=== PATIENT | female | born 1940 | race Caucasian/White ===

== ENCOUNTER 2018-02-21 15:23 | Inpatient (IN) | payer MEDICARE ==
[2018-02-21] MEDS ORDERED: NS 0.9% 1000 ML* 1,000 ML IV SCH ×2 (17:45→21:45)
[2018-02-21 18:15] LABS: ABS Basophils 0.1 10^3/ul (0-0.2); ABS Eosinophils 0.1 10^3/ul (0-0.6); ABS Lymphocytes 1.1 10^3/ul (1.0-4.8); ABS Monocytes 0.8 10^3/ul (0-0.8); ABS Neutrophils 7.2 10^3/ul (1.5-7.7); ABS Nucleated RBC 0 10^3/ul; Eosinophil % 0.6 % (0-6); Hematocrit 36 % (35-47); Hemoglobin 11.8 g/dl (12.0-16.0); Mean Corpuscular HGB Conc 33 g/dl (31-36); Mean Corpuscular Hemoglobin 31 pg (27-31); Mean Corpuscular Volume 94 fL (80-97); Mean Platelet Volume 7.5 um3 (7.4-10.4); Nucleated Red Blood Cells % 0; Platelet Count 295 10^3/ul (150-450); Red Blood Count 3.77 10^6/ul (4.0-5.4); Red Cell Distribution Width 15 % (10.5-15); White Blood Count 9.2 10^3/ul (3.5-10.8)
[2018-02-21 18:30] LABS: INR 0.98 (0.77-1.02)
[2018-02-21] MEDS ORDERED: Morphine INJ* 10 MG/ML 1 ML CARPUJECT IV ONE (18:31)
[2018-02-21] MEDS ORDERED: Ondansetron INJ* 2 MG/ML VIAL IV ONE (18:31)
[2018-02-21] MEDS ORDERED: Morphine VIAL* 4 MG/ML VIAL (1 ml vial) IV ONE ×2 (18:33→18:43)
[2018-02-21 18:34] LABS: EGFR Non-African American 88.6 (>60)
[2018-02-21 19:02] LABS: Urine Appearance Clear; Urine Blood 2+ (Negative); Urine Color Straw; Urine Ketones Negative (Negative); Urine Protein Negative (Negative); Urine Urobilinogen Negative (Negative)
[2018-02-21] MEDS ORDERED: Iohexol 300* (CONTRAST) 10 ML SDV IV ONE (19:48)
--- NOTE | 2018-02-21 20:43 | RAD ---
Indication: Abdominal pain, colitis. Contrast: Administered 91.0 ml of OMNIPAQUE 300 mg/ml. CT of the abdomen and pelvis was performed after oral and IV contrast administration. Lung bases demonstrate no pleural fluid, nodules or masses. Heart is of normal size without evidence of pericardial effusion. Liver is normal in size. No focal lesions or intrahepatic ductal dilatation is noted. Typical area of focal fatty infiltration in the anterior medial left lobe. The gallbladder demonstrates tiny calcified gallstone. No pericholecystic fluid or wall thickening is noted. The spleen is normal in size. There may be a small splenic artery aneurysm at the splenic hilum measuring up to 8 mm. This is wall calcified. The pancreas demonstrates no mass or pancreatic duct dilatation. No adrenal lesions are noted. The kidneys demonstrate no hydronephrosis. No retroperitoneal lymphadenopathy is noted. CT of the pelvis demonstrates wall thickening of the entire colon consistent with colitis. Minimal pericolonic infiltration of fat is noted. No dilated loops of bowel are noted. There is right hip replacement noted. IMPRESSION: Diffuse wall thickening of the colon consistent with colitis. There is likely small gallstone noted. Typical focal fatty infiltration. 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
--- NOTE | 2018-02-21 21:24 | ED ---
Carlos Mayes Angela, scribed for Nicholas Alonso on 02/21/18 at 1727 . GI/ HPI - HPI Summary HPI Summary: This pt is a 77 y/o female presenting to [facility] for diarrhea x6 days. Pt reports she has been bloated, gassy, and has had abdominal cramping for the past 6 days. She states she wakes up every couple of hours secondary to pain. Pt notes today she has had 8-10 episodes of diarrhea. Denies fever, vomiting, bloody stools, chest pain, SOB. Denies recent travel. Pt states she had right hip replacement surgery on January 29. Denies antibiotic use and states she only took pain medications. Pt was in [facility] for rehab for 20 days. She had a C. diff lab test done yesterday, which resulted negative. - History of Current Complaint Chief Complaint: EDNauseaVomitDiarrh Time Seen by Provider: 02/21/18 17:02 Stated Complaint: DIARHEA/BLOATING Hx Obtained From: Patient Onset/Duration: Started Days Ago, Still Present Timing: Lasting Days Current Severity: Moderate Pain Intensity: 5 Location of Pain: Diffuse Associated Signs and Symptoms: Positive: Diarrhea. Negative: Vomiting, Fever, Chest Pain Aggravating Factor(s): Nothing Alleviating Factor(s): Nothing - Allergy/Home Medications Allergies/Adverse Reactions: Allergies Allergy/AdvReac Type Severity Reaction Status Date / Time No Known Allergies Allergy Verified 02/21/18 15:26 Home Medications: Home Medications Unobtainable [Unobtainable] 02/21/18 [History Confirmed 02/21/18] PMH/Surg Hx/FS Hx/Imm Hx Endocrine/Hematology History: Denies: Hx Diabetes Cardiovascular History: Denies: Hx Hypertension Musculoskeletal History: Denies: Hx Rheumatoid Arthritis, Hx Osteoporosis - Cancer History Hx Chemotherapy: No Hx Radiation Therapy: No - Surgical History Surgery Procedure, Year, and Place: Right hip replacement Infectious Disease History: No Infectious Disease History: Denies: Traveled Outside the [place] in Last 30 Days - Family History Known Family History: Negative: Cardiac Disease - Social History Alcohol Use: None Substance Use Type: Reports: None Smoking Status (MU): Never Smoked Tobacco Review of Systems Negative: Fever, Chills Negative: Chest Pain Negative: Shortness Of Breath Positive: Abdominal Pain, Diarrhea. Negative: Vomiting Musculoskeletal: Negative Skin: Negative Neurological: Negative All Other Systems Reviewed And Are Negative: Yes Physical Exam - Summary Physical Exam Summary: Appearance: Well appearing, no pain distress Skin: warm, dry, reflects adequate perfusion Head/face: normal Eyes: EOMI, RADHA ENT: normal Neck: supple, nontender Respiratory: CTA, breath sounds present Cardiovascular: RRR, pulses symmetrical Abdomen: soft, diffuse abdominal tenderness Bowel: present Musculoskeletal: normal, strength/ROM intact Neuro: normal, sensory motor intact, A&Ox3 Triage Information Reviewed: Yes Vital Signs On Initial Exam: Initial Vitals Temp Pulse Resp BP Pulse Ox 98.6 F 90 16 124/51 96 02/21/18 15:27 02/21/18 15:27 02/21/18 15:27 02/21/18 15:27 02/21/18 15:27 Vital Signs Reviewed: Yes Diagnostics - Vital Signs Vital Signs Temp Pulse Resp BP Pulse Ox 02/21/18 15:27 98.6 F 90 16 124/51 96 - Laboratory Lab Results: Lab Results 02/21/18 02/21/18 02/21/18 Range/Units 18:02 18:02 18:02 WBC 9.2 (3.5-10.8) 10^3/ul RBC 3.77 L (4.0-5.4) 10^6/ul Hgb 11.8 L (12.0-16.0) g/dl Hct 36 (35-47) % MCV 94 (80-97) fL MCH 31 (27-31) pg MCHC 33 (31-36) g/dl RDW 15 (10.5-15) % Plt Count 295 (150-450) 10^3/ul MPV 7.5 (7.4-10.4) um3 Neut % (Auto) 77.8 (38-83) % Lymph % (Auto) 12.0 L (25-47) % Stevens % (Auto) 9.0 H (0-7) % Eos % (Auto) 0.6 (0-6) % Baso % (Auto) 0.6 (0-2) % Absolute Neuts (auto) 7.2 (1.5-7.7) 10^3/ul Absolute Lymphs (auto) 1.1 (1.0-4.8) 10^3/ul Absolute Monos (auto) 0.8 (0-0.8) 10^3/ul Absolute Eos (auto) 0.1 (0-0.6) 10^3/ul Absolute Basos (auto) 0.1 (0-0.2) 10^3/ul Absolute Nucleated RBC 0 10^3/ul Nucleated RBC % 0 INR (Anticoag Therapy) 0.98 (0.77-1.02) APTT 28.1 (26.0-36.3) seconds Sodium 137 L (139-145) mmol/L Potassium 3.9 (3.5-5.0) mmol/L Chloride 102 (101-111) mmol/L Carbon Dioxide 27 (22-32) mmol/L Anion Gap 8 (2-11) mmol/L BUN 14 (6-24) mg/dL Creatinine 0.65 (0.51-0.95) mg/dL Est GFR ( Amer) 114.0 (>60) Est GFR (Non-Af Amer) 88.6 (>60) BUN/Creatinine Ratio 21.5 H (8-20) Glucose 110 H (70-100) mg/dL Lactic Acid (0.5-2.0) mmol/L Calcium 9.3 (8.6-10.3) mg/dL Total Bilirubin 0.50 (0.2-1.0) mg/dL AST 17 (13-39) U/L ALT 21 (7-52) U/L Alkaline Phosphatase 85 (34-104) U/L Troponin I 0.00 (<0.04) ng/mL C-Reactive Protein 46.45 H (< 5.00) mg/L Total Protein 6.9 (6.4-8.9) g/dL Albumin 3.9 (3.2-5.2) g/dL Globulin 3.0 (2-4) g/dL Albumin/Globulin Ratio 1.3 (1-3) Lipase 110 H (11.0-82.0) U/L Urine Color Urine Appearance Urine pH (5-9) Ur Specific [place] (1.010-1.030) Urine Protein (Negative) Urine Ketones (Negative) Urine Blood (Negative) Urine Nitrate (Negative) Urine Bilirubin (Negative) Urine Urobilinogen (Negative) Ur Leukocyte Esterase (Negative) Urine WBC (Auto) (Absent) Urine RBC (Auto) (Absent) Urine Bacteria (Absent) Urine Glucose (Negative) 02/21/18 02/21/18 Range/Units 18:02 18:50 WBC (3.5-10.8) 10^3/ul RBC (4.0-5.4) 10^6/ul Hgb (12.0-16.0) g/dl Hct (35-47) % MCV (80-97) fL MCH (27-31) pg MCHC (31-36) g/dl RDW (10.5-15) % Plt Count (150-450) 10^3/ul MPV (7.4-10.4) um3 Neut % (Auto) (38-83) % Lymph % (Auto) (25-47) % Stevens % (Auto) (0-7) % Eos % (Auto) (0-6) % Baso % (Auto) (0-2) % Absolute Neuts (auto) (1.5-7.7) 10^3/ul Absolute Lymphs (auto) (1.0-4.8) 10^3/ul Absolute Monos (auto) (0-0.8) 10^3/ul Absolute Eos (auto) (0-0.6) 10^3/ul Absolute Basos (auto) (0-0.2) 10^3/ul Absolute Nucleated RBC 10^3/ul Nucleated RBC % INR (Anticoag Therapy) (0.77-1.02) APTT (26.0-36.3) seconds Sodium (139-145) mmol/L Potassium (3.5-5.0) mmol/L Chloride (101-111) mmol/L Carbon Dioxide (22-32) mmol/L Anion Gap (2-11) mmol/L BUN (6-24) mg/dL Creatinine (0.51-0.95) mg/dL Est GFR ( Amer) (>60) Est GFR (Non-Af Amer) (>60) BUN/Creatinine Ratio (8-20) Glucose (70-100) mg/dL Lactic Acid 0.8 (0.5-2.0) mmol/L Calcium (8.6-10.3) mg/dL Total Bilirubin (0.2-1.0) mg/dL AST (13-39) U/L ALT (7-52) U/L Alkaline Phosphatase (34-104) U/L Troponin I (<0.04) ng/mL C-Reactive Protein (< 5.00) mg/L Total Protein (6.4-8.9) g/dL Albumin (3.2-5.2) g/dL Globulin (2-4) g/dL Albumin/Globulin Ratio (1-3) Lipase (11.0-82.0) U/L Urine Color Straw Urine Appearance Clear Urine pH 7.0 (5-9) Ur Specific [place] 1.000 L (1.010-1.030) Urine Protein Negative (Negative) Urine Ketones Negative (Negative) Urine Blood 2+ A (Negative) Urine Nitrate Negative (Negative) Urine Bilirubin Negative (Negative) Urine Urobilinogen Negative (Negative) Ur Leukocyte Esterase Negative (Negative) Urine WBC (Auto) Trace(0-5/hpf) (Absent) Urine RBC (Auto) Trace(0-2/hpf) (Absent) Urine Bacteria Absent (Absent) Urine Glucose Negative (Negative) Result Diagrams: 02/21/18 18:02 02/21/18 18:02 Lab Statement: Any lab studies that have been ordered have been reviewed, and results considered in the medical decision making process. - CT CT abdomen/pelvis CT Interpretation: Positive (See Comments) - IMPRESSION: Diffuse wall thickening of the colon consistent with colitis. There is likely small gallstone noted. Typical focal fatty infiltration. 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 Dr. Alonso has reviewed this radiology report. CT Interpretation Completed By: Radiologist Re-Evaluation - Re-Evaluation First Eval Re-Evaluation Time: 20:54 Comment: I reviewed the lab and CT results with the pt. I also discussed the admission plan with the pt. GIGU Course/Dx - Course Assessment/Plan: Pt is a 77 y/o female presenting to [facility] for diarrhea x6 days. Pt reports she has been bloated, gassy, and has had abdominal cramping for the past 6 days. Blood work, urinalysis, CT abdomen/pelvis were obtained. CT shows diffuse wall thickening of the colon consistent with colitis. There is likely small gallstone noted. Typical focal fatty infiltration. 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 In the ED course the pt was given IV fluids, morphine and Zofran. I discussed pt care with Dr. Gallagher, hospitalist, who has agreed to admit the pt. - Diagnoses Differential Diagnoses - Female: Cholelithiasis, Diverticulitis, Gastroenteritis (Bacterial), Ischemic Bowel, Pancreatitis, Renal Colic, Ureteral Calculi Provider Diagnoses: Colitis, Abdominal pain - Physician Notifications Discussed Care Of Patient With: Constantino Gallagher Time Discussed With Above Provider: 21:09 Instructed by Provider To: Other - I discussed pt care with Dr. Gallagher, hospitalist, who has agreed to admit the pt. Discharge - Sign-Out/Discharge Documenting (check all that apply): Discharge/Admit/Transfer - Admit to [facility] - Discharge Plan Condition: Stable Disposition: ADMITTED TO [facility] Referrals: No Primary Care Phys,NOPCP [Primary Care Provider] - - Billing Disposition and Condition Condition: STABLE Disposition: HOSP-[facility] The documentation as recorded by the Carlos foote Angela accurately reflects the service I personally performed and the decisions made by , Nicholas Alonso.
[2018-02-21] MEDS ORDERED: Acetaminophen TAB* 325 MG PO PRN (21:31)
[2018-02-21] MEDS ORDERED: Ondansetron INJ* 2 MG/ML VIAL IV PRN (21:31)
[2018-02-21] MEDS ORDERED: Dicyclomine CAP* 10 MG PO PRN (21:31)
[2018-02-21] MEDS ORDERED: ACETAMINOPHEN PO PRN (21:35)
[2018-02-21] MEDS ORDERED: OXYCODONE PO PRN (21:35)
[2018-02-21] MEDS: Ciprofloxacin 400MG IVPREMIX(* 400 MG/200 ML BAG IVPB SCH (22:55)
[2018-02-21] MEDS: Simethicone TAB* 80 MG TAB.CHEW PO SCH (22:55)
[2018-02-21] MEDS: Heparin VIAL(*) 5000 UNITS/ML VIAL (FIVE THOUSAND) SUBCUT SCH (22:56)
--- NOTE | 2018-02-21 23:18 | HP ---
HISTORY AND PHYSICAL: DATE OF ADMISSION: 02/21/18 PRIMARY CARE PROVIDER: None. ATTENDING PHYSICIAN WHILE IN THE HOSPITAL: Constantino Gallagher MD * (report dictated by Bienvenido Cornejo NP) CHIEF COMPLAINT: 1. Diarrhea. 2. Lower abdominal pain. HISTORY OF PRESENT ILLNESS: Mrs. Preciado is a 77-year-old female patient who carry a history of arthritis, neuropathy, and hyperlipidemia. She has recently had a right total hip arthroplasty under the care of Liza with Dr. Villanueva on 01/29/18. She was discharged several days later, was sent to [facility] for rehab and she initially was doing well there. However, over the last 6 days, she has been having lower abdominal cramping that she describes as a cramping, stabbing, sharp pain that is coming and going in waves in the lower abdomen that has been getting worse over the last 6 days and she has been having loose liquid diarrhea. She has gone numeral amounts of time. She states that she has had decreased appetite. She had one episode of nausea but no vomiting and she says the pain is in the lower abdomen. It is not associate with food intake. She states though she does not have any interest in food. She denies any chest pain or shortness of breath. She denied having any blood in the stool. Denies having any fevers or chills. Again, no recent antibiotics that she is aware of. She does state that she was tested for C. diff at [facility] and she was tested negative. She came into the ED today. There was concern because of the amounts of diarrhea she was having. A CT scan was obtained, did show a diffuse colitis, so because of this, we were asked to evaluate for admission. PAST MEDICAL HISTORY: Significant for: 1. Neuropathy. 2. Hyperlipidemia. 3. Arthritis. PAST SURGICAL HISTORY: 1. The patient has had a left total hip arthroplasty done on 01/29/18. 2. She has had a right upper extremity ORIF. HOME MEDICATIONS: Include: 1. Percocet 1 tablet p.o. every 4 hours as needed. 2. Chloraseptic 1 spray every 6 hours as needed. 3. Christina 500 mg p.o. daily. 4. Ferrous sulfate 325 mg p.o. b.i.d. 5. Coenzyme Q10 one capsule p.o. daily. 6. Vitamin B 1 tablet p.o. daily. 7. B12 2500 mcg p.o. daily. 8. Tramadol 25 mg every 8 hours as needed. 9. Norman-3 fatty acids 1000 mg p.o. daily. 10. Multivitamin 1 tablet daily. 11. Vitamin D 2000 units p.o. daily. 12. Aspirin 81 mg daily. 13. Simethicone 80 mg every 6 hours. 14. Imodium 2 mg every 4 hours as needed. 15. Senna 2 tablets p.o. b.i.d. as needed. ALLERGIES TO MEDICATION: Include no known drug allergies. FAMILY HISTORY: Mother had a history of colon cancer. Father was a heavy drinker and smoker. She says he of complications related to this. SOCIAL HISTORY: She does not smoke. She does not drink. Surrogate decision maker is her daughter, Elizabeth. REVIEW OF SYSTEMS: There is no documented fever. She denied having any significant weight change. There is no double vision. There is no ear discharge. She denied having any rhinorrhea. There is no sore throat, no thyroid enlargement. She denies having any chest pain. There is no orthopnea. There is no nocturnal dyspnea. She does admit to having lower abdominal cramping. She does admit to 1 episode of nausea and she definitely been having some diarrhea. No dysuria, no frequency, no seizure, no loss of consciousness, no pruritus, and no skin ulceration. Review of 14 systems completed, all others negative. PHYSICAL EXAMINATION GENERAL: At this time, Mrs. Preciado is a 77-year-old female patient. She appears to be well nourished, well developed. She does not appear to be in any acute distress. She is sitting in the ED stretcher. VITAL SIGNS: Blood pressure 137/70 with a pulse of 97, respirations 16, O2 sat 97%, temperature was 98.6. HEENT: Head is atraumatic, normocephalic. Eyes: EOMs intact. Sclerae anicteric and not pale. Throat: Oral mucosa appears to be moist. No oropharyngeal erythema. NECK: Supple. LUNGS: Clear to auscultation bilaterally. No wheezes, rales, or rhonchi. HEART: Sounds S1, S2. Regular rate and rhythm. No murmurs, rubs, or gallops. ABDOMEN: Soft. It was flat. Bowel sounds were hyperactive. She was tender in the right lower and left lower quadrant. She had no rebound tenderness or guarding. EXTREMITIES: Pulses were 2+ throughout. She had no peripheral edema. She is moving all 4 extremities with 5/5 strength. NEUROLOGIC: She is awake, alert, and oriented x3. No gross focal deficits. SKIN: Intact. She does have an incision to the right hip, which is open to air. It was clean, dry, and intact, which is well approximated and there is no erythema or drainage noted. DIAGNOSTIC STUDIES/LAB DATA: WBC of 9.2, RBC of 3.77, hemoglobin of 11.8, hematocrit 36, platelet count of 295. The INR was 0.98. PTT was 28.1. Sodium was 137, potassium was 3.9, chloride of 102, bicarb 27, BUN 14, creatinine of 0.65, glucose 110, lactate 0.8, calcium 9.3, total bili 0.5, AST 17, ALT 21, alk phos 85, troponin 0. CRP of 46. Albumin of 3.9. Lipase of 110. Urine was negative. She did have 2+ blood. CT abdomen and pelvis showed diffuse wall thickening of the colon consistent with colitis. There is likely a small gallstone noted, typical focal fatty infiltration. 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 Old medical records were reviewed. ASSESSMENT AND PLAN: Mrs. Preciado is a 77-year-old female patient coming into the ER today with complaints of one episode of nausea, but more profound diarrhea, lower abdominal cramping. We were asked to evaluate for admission. She will be admitted under observation status for: 1. Colitis. At this point, etiology is unclear. Certainly, it could be viral or bacterial colitis. I do think she needs stool samples for fecal lactoferrin and we also need to get a stool parasite and ova panels, stool cultures, and I am checking C. diff, Norovirus, and Rotavirus. I think she does definitely need to be hydrated. We will go ahead and put her on Cipro and Flagyl. This has been ongoing on for about 6 days. They put her simethicone and Bentyl. If it does not improve, we can consider getting a GI or Infectious Disease consult , but at this point, I think we continue with supportive care, adding on IV antibiotics and continue to follow. 2. Splenic artery aneurysm. Follow with her PCP, need to be monitored. 3. Neuropathy. Continue current meds. 4. Hyperlipidemia. Continue diet and lifestyle modifications. 5. Arthritis. Continue her p.r.n. pain medications. 6. DVT prophylaxis. She will be placed on heparin subcu. 7. Code status. She is a full code. 8. Fluids, electrolytes, nutrition. She can have a clear liquid diet. 9. Mild pancreatitis. This probably is related to the stress of the colitis. She is not having any upper abdominal pain or signs or symptoms consistent with pancreatitis. She has been on clears and hydrated and will check her lipase in the morning. TIME SPENT: Time spent on the admission 60 minutes, greater than half time spent [id number] with the patient obtaining my history and physical; other half time was spent going over the plan of care with the patient and implementing the plan of care. I did discuss the plan of care with my attending Dr. Gallagher; he is in agreement. BIENVENIDO CORNEJO, KEVIN [id number]/CPS #: [id number] LISA
[2018-02-22] MEDS: metroNIDAZOLE IV 500 MG/100ML* 500 MG/100 ML BAG IVPB SCH ×4 (00:20→23:00)
[2018-02-22] MEDS: Heparin VIAL(*) 5000 UNITS/ML VIAL (FIVE THOUSAND) SUBCUT SCH ×3 (06:07→21:45)
[2018-02-22] MEDS: Simethicone TAB* 80 MG TAB.CHEW PO SCH ×3 (06:07→16:06)
[2018-02-22 06:58] LABS: ABS Basophils 0 10^3/ul (0-0.2); ABS Eosinophils 0.1 10^3/ul (0-0.6); ABS Lymphocytes 1.5 10^3/ul (1.0-4.8); ABS Monocytes 0.7 10^3/ul (0-0.8); ABS Neutrophils 3.9 10^3/ul (1.5-7.7); ABS Nucleated RBC 0 10^3/ul; Eosinophil % 1.8 % (0-6); Hematocrit 31 % (35-47); Hemoglobin 10.6 g/dl (12.0-16.0); Lymphocyte % 23.9 % (25-47); Mean Corpuscular HGB Conc 34 g/dl (31-36); Mean Corpuscular Hemoglobin 32 pg (27-31); Mean Corpuscular Volume 94 fL (80-97); Mean Platelet Volume 7.3 um3 (7.4-10.4); Nucleated Red Blood Cells % 0.1; Platelet Count 254 10^3/ul (150-450); Red Blood Count 3.32 10^6/ul (4.0-5.4); Red Cell Distribution Width 15 % (10.5-15); White Blood Count 6.3 10^3/ul (3.5-10.8)
[2018-02-22 07:14] LABS: EGFR Non-African American 107.5 (>60)
[2018-02-22 07:16] LABS: INR 1.02 (0.77-1.02)
[2018-02-22] MEDS: Aspirin EC TAB* 81 MG TAB.EC PO SCH (08:45)
[2018-02-22] MEDS: Ferrous Sulfate TAB* 325 MG PO SCH ×2 (08:45→21:45)
[2018-02-22] MEDS ORDERED: Potassium Chlor TAB* 20 MEQ TAB.ER PO ONE (08:53)
[2018-02-22] MEDS ORDERED: Potassium Phosphate IV* 15 MMOLE in NS 0.9% 250 ML* 250 ML IVPB ONE (09:30)
[2018-02-22] MEDS: Ciprofloxacin 400MG IVPREMIX(* 400 MG/200 ML BAG IVPB SCH ×2 (09:31→21:46)
[2018-02-22] MEDS: traMADol TAB* 50 MG PO PRN ×2 (09:42→22:13)
--- NOTE | 2018-02-22 15:40 | PN ---
Subjective Date of Service: 02/22/18 Interval History: . patient feels very weak. she thinks her diarrhea might be decreasing, but she is still very weak and "wiped out" she insists she is too unsafe to go home today and requests to stay until tomorrow and I agree with that. she is hungry -- a good sign -- and will start a solid diet. ongoing antibiotics. . Family History: Unchanged from Admission Social History: Unchanged from Admission Past Medical History: Unchanged from Admission Objective Active Medications: . Acetaminophen (Tylenol Tab*) 650 mg PO Q4H PRN PRN Reason: FEVER/PAIN Aspirin (Aspirin Ec Tab*) 81 mg PO DAILY [facility] Last Admin: 02/22/18 08:45 Dose: 81 mg Dicyclomine HCl (Bentyl Cap*) 10 mg PO TID PRN PRN Reason: LOOSE BOWEL MOVEMENT Last Admin: 02/21/18 22:54 Dose: 10 mg Ferrous Sulfate (Ferrous Sulfate Tab*) 325 mg PO BID [facility] Last Admin: 02/22/18 08:45 Dose: 325 mg Heparin Sodium (Porcine) (Heparin Vial(*)) 5,000 units SUBCUT Q8HR [facility] Last Admin: 02/22/18 15:23 Dose: 5,000 units Ciprofloxacin/Dextrose (Cipro 400 Mg Ivpremix(*)) 400 mg in 200 mls @ 200 mls/ hr IVPB Q12H [facility] Last Admin: 02/22/18 09:31 Dose: 200 mls/hr Metronidazole/Sodium Chloride (Flagyl 500 Mg Ivpb*) 500 mg in 100 mls @ 100 mls /hr IVPB Q8H [facility] Last Admin: 02/22/18 15:25 Dose: 100 mls/hr Ondansetron HCl (Zofran Inj*) 4 mg IV Q6H PRN PRN Reason: NAUSEA Simethicone (Mylicon Tab*) 80 mg PO AC [facility] Last Admin: 02/22/18 12:17 Dose: 80 mg Tramadol HCl (Ultram*) 25 mg PO Q8H PRN PRN Reason: PAIN Last Admin: 02/22/18 09:42 Dose: 25 mg Oxygen Devices in Use Now: None Appearance: elderly and frail. dehydrated and tired. Eyes: No Scleral Icterus Ears/Nose/Mouth/Throat: Clear Oropharnyx Neck: NL Appearance and Movements; NL JVP Respiratory: Symmetrical Chest Expansion and Respiratory Effort Cardiovascular: NL Sounds; No Murmurs; No JVD Abdominal: - - diffuse tenderness. Lymphatic: No Cervical Adenopathy Extremities: No Edema Skin: No Rash or Ulcers Neurological: Alert and Oriented x 3 Lines/Tubes/Other Access: Clean, Dry and Intact Peripheral IV Nutrition: Taking PO's - changed to oral solid diet todayt. Result Diagrams: 02/22/18 06:50 02/22/18 06:50 Additional Lab and Data: Lab Results 02/21/18 02/21/18 02/21/18 Range/Units 18:02 18:02 18:02 WBC 9.2 (3.5-10.8) 10^3/ul RBC 3.77 L (4.0-5.4) 10^6/ul Hgb 11.8 L (12.0-16.0) g/dl Hct 36 (35-47) % MCV 94 (80-97) fL MCH 31 (27-31) pg MCHC 33 (31-36) g/dl RDW 15 (10.5-15) % Plt Count 295 (150-450) 10^3/ul MPV 7.5 (7.4-10.4) um3 Neut % (Auto) 77.8 (38-83) % Lymph % (Auto) 12.0 L (25-47) % [place] % (Auto) 9.0 H (0-7) % Eos % (Auto) 0.6 (0-6) % Baso % (Auto) 0.6 (0-2) % Absolute Neuts (auto) 7.2 (1.5-7.7) 10^3/ul Absolute Lymphs (auto) 1.1 (1.0-4.8) 10^3/ul Absolute Monos (auto) 0.8 (0-0.8) 10^3/ul Absolute Eos (auto) 0.1 (0-0.6) 10^3/ul Absolute Basos (auto) 0.1 (0-0.2) 10^3/ul Absolute Nucleated RBC 0 10^3/ul Nucleated RBC % 0 INR (Anticoag Therapy) 0.98 (0.77-1.02) APTT 28.1 (26.0-36.3) seconds Sodium 137 L (139-145) mmol/L Potassium 3.9 (3.5-5.0) mmol/L Chloride 102 (101-111) mmol/L Carbon Dioxide 27 (22-32) mmol/L Anion Gap 8 (2-11) mmol/L BUN 14 (6-24) mg/dL Creatinine 0.65 (0.51-0.95) mg/dL Est GFR ( Amer) 114.0 (>60) Est GFR (Non-Af Amer) 88.6 (>60) BUN/Creatinine Ratio 21.5 H (8-20) Glucose 110 H (70-100) mg/dL Lactic Acid (0.5-2.0) mmol/L Calcium 9.3 (8.6-10.3) mg/dL Total Bilirubin 0.50 (0.2-1.0) mg/dL AST 17 (13-39) U/L ALT 21 (7-52) U/L Alkaline Phosphatase 85 (34-104) U/L Troponin I 0.00 (<0.04) ng/mL C-Reactive Protein 46.45 H (< 5.00) mg/L Total Protein 6.9 (6.4-8.9) g/dL Albumin 3.9 (3.2-5.2) g/dL Globulin 3.0 (2-4) g/dL Albumin/Globulin Ratio 1.3 (1-3) Lipase 110 H (11.0-82.0) U/L Urine Color Urine Appearance Urine pH (5-9) Ur Specific [place] (1.010-1.030) Urine Protein (Negative) Urine Ketones (Negative) Urine Blood (Negative) Urine Nitrate (Negative) Urine Bilirubin (Negative) Urine Urobilinogen (Negative) Ur Leukocyte Esterase (Negative) Urine WBC (Auto) (Absent) Urine RBC (Auto) (Absent) Urine Bacteria (Absent) Urine Glucose (Negative) 02/21/18 02/21/18 Range/Units 18:02 18:50 WBC (3.5-10.8) 10^3/ul RBC (4.0-5.4) 10^6/ul Hgb (12.0-16.0) g/dl Hct (35-47) % MCV (80-97) fL MCH (27-31) pg MCHC (31-36) g/dl RDW (10.5-15) % Plt Count (150-450) 10^3/ul MPV (7.4-10.4) um3 Neut % (Auto) (38-83) % Lymph % (Auto) (25-47) % [place] % (Auto) (0-7) % Eos % (Auto) (0-6) % Baso % (Auto) (0-2) % Absolute Neuts (auto) (1.5-7.7) 10^3/ul Absolute Lymphs (auto) (1.0-4.8) 10^3/ul Absolute Monos (auto) (0-0.8) 10^3/ul Absolute Eos (auto) (0-0.6) 10^3/ul Absolute Basos (auto) (0-0.2) 10^3/ul Absolute Nucleated RBC 10^3/ul Nucleated RBC % INR (Anticoag Therapy) (0.77-1.02) APTT (26.0-36.3) seconds Sodium (139-145) mmol/L Potassium (3.5-5.0) mmol/L Chloride (101-111) mmol/L Carbon Dioxide (22-32) mmol/L Anion Gap (2-11) mmol/L BUN (6-24) mg/dL Creatinine (0.51-0.95) mg/dL Est GFR ( Amer) (>60) Est GFR (Non-Af Amer) (>60) BUN/Creatinine Ratio (8-20) Glucose (70-100) mg/dL Lactic Acid 0.8 (0.5-2.0) mmol/L Calcium (8.6-10.3) mg/dL Total Bilirubin (0.2-1.0) mg/dL AST (13-39) U/L ALT (7-52) U/L Alkaline Phosphatase (34-104) U/L Troponin I (<0.04) ng/mL C-Reactive Protein (< 5.00) mg/L Total Protein (6.4-8.9) g/dL Albumin (3.2-5.2) g/dL Globulin (2-4) g/dL Albumin/Globulin Ratio (1-3) Lipase (11.0-82.0) U/L Urine Color Straw Urine Appearance Clear Urine pH 7.0 (5-9) Ur Specific [place] 1.000 L (1.010-1.030) Urine Protein Negative (Negative) Urine Ketones Negative (Negative) Urine Blood 2+ A (Negative) Urine Nitrate Negative (Negative) Urine Bilirubin Negative (Negative) Urine Urobilinogen Negative (Negative) Ur Leukocyte Esterase Negative (Negative) Urine WBC (Auto) Trace(0-5/hpf) (Absent) Urine RBC (Auto) Trace(0-2/hpf) (Absent) Urine Bacteria Absent (Absent) Urine Glucose Negative (Negative) Assess/Plan/Problems-Billing . Assessment: 77 yo female with unexplained colitis and diffuse abdominal pain. dehydration and electrolyte derangements are noted. admit to inpatient and continue to observe for decreased stool output, resolution of abdominal pain and subjective ability of patient to care for self in outpatient setting. . - Patient Problems (1) Colitis Current Visit: Yes Status: Acute Priority: High Code(s): K52.9 - NONINFECTIVE GASTROENTERITIS AND COLITIS, UNSPECIFIED Comment: - trend stool output - monitor vitals and pain level; continue analgesic therapy - follow and replete electrolytes given stool output. - admit to inpatient status.
[2018-02-23] MEDS: metroNIDAZOLE IV 500 MG/100ML* 500 MG/100 ML BAG IVPB SCH ×2 (06:28→15:08)
[2018-02-23] MEDS: Simethicone TAB* 80 MG TAB.CHEW PO SCH ×2 (06:31→13:45)
[2018-02-23] MEDS: Heparin VIAL(*) 5000 UNITS/ML VIAL (FIVE THOUSAND) SUBCUT SCH ×2 (06:31→13:46)
[2018-02-23 07:13] LABS: ABS Basophils 0 10^3/ul (0-0.2); ABS Eosinophils 0.1 10^3/ul (0-0.6); ABS Lymphocytes 1.5 10^3/ul (1.0-4.8); ABS Monocytes 0.5 10^3/ul (0-0.8); ABS Neutrophils 2.3 10^3/ul (1.5-7.7); ABS Nucleated RBC 0 10^3/ul; Eosinophil % 2.8 % (0-6); Hematocrit 31 % (35-47); Hemoglobin 10.6 g/dl (12.0-16.0); Lymphocyte % 32.6 % (25-47); Mean Corpuscular HGB Conc 34 g/dl (31-36); Mean Corpuscular Hemoglobin 32 pg (27-31); Mean Corpuscular Volume 94 fL (80-97); Mean Platelet Volume 7.5 um3 (7.4-10.4); Nucleated Red Blood Cells % 0; Platelet Count 224 10^3/ul (150-450); Red Blood Count 3.28 10^6/ul (4.0-5.4); Red Cell Distribution Width 15 % (10.5-15); White Blood Count 4.5 10^3/ul (3.5-10.8)
[2018-02-23 07:45] LABS: EGFR Non-African American 87.1 (>60)
[2018-02-23] MEDS: Aspirin EC TAB* 81 MG TAB.EC PO SCH (10:19)
[2018-02-23] MEDS: Ferrous Sulfate TAB* 325 MG PO SCH (10:19)
[2018-02-23] MEDS: Ciprofloxacin 400MG IVPREMIX(* 400 MG/200 ML BAG IVPB SCH (10:21)
[2018-02-23 15:08] VITALS: BP 113/37
--- NOTE | 2018-04-03 17:48 | DS ---
DISCHARGE SUMMARY: DATE OF ADMISSION: 02/21/18 DATE OF DISCHARGE: 02/23/18 STATUS DURING HOSPITALIZATION: Inpatient. OUTPATIENT PRIMARY CARE PROVIDER: Unknown. DISCHARGE DIAGNOSES: Infectious colitis with diffuse diarrhea and dehydration and elevated CRP with abdominal pain. SECONDARY DIAGNOSES: 1. Neuropathy. 2. Hyperlipidemia. 3. Arthritis. DISCHARGE MEDICATION REGIMEN: New Medications: 1. Ciprofloxacin 500 mg by mouth twice daily for 5 days, then stop. 2. Metronidazole 500 mg by mouth twice daily for 5 days, then stop. Continue: 1. Percocet one tab by mouth every 4 hours as needed for pain/fever. 2. Chloraseptic one spray every 6 hours as needed. 3. [place] 500 mg by mouth daily. 4. Ferrous sulfate 325 mg by mouth twice daily. 5. Coenzyme Q10 one capsule by mouth once daily. 6. Vitamin B one tablet by mouth daily. 7. Vitamin B12 2500 mcg by mouth daily. 8. Tramadol 25 mg by mouth every 8 hours as needed. 9. [place]-3 fatty acids 1000 mg by mouth daily. 10. Multivitamin one tablet by mouth once daily. 11. Vitamin D 2000 units by mouth daily. 12. Aspirin 81 mg by mouth daily. 13. Simethicone 80 mg by mouth every 6 hours p.r.n. bloating. 14. Imodium 2 mg every 4 hours as needed for loose stools (advised to limit use ). 15. Senna two tabs by mouth twice daily as needed when constipated (also told to hold given current situation). STUDIES DURING HOSPITALIZATION: CT abdomen at admission showing diffuse wall thickening of the colon consistent with colitis. There is a small gallstone noted, typical focal fatty infiltration of the liver as well as splenic artery aneurysm measuring up to 8 mm at the splenic hilum. HISTORY OF PRESENT ILLNESS/HOSPITAL COURSE: Please see the H and P by nurse practitioner, Bienvenido Cornejo, under the supervision of Dr. Constantino Gallagher. In brief, Ms. Preciado is a 77-year-old female with a history of arthritis, neuropathy, and hyperlipidemia. She had a right total hip arthroplasty recently and was discharged several days later to [facility]. She had an uneventful initial stay, but 6 days prior to admission was marked by lower abdominal cramping, stabbing and sharp pain (terms used by patient), that were coming and going at waves. The patient has had increasing bowel movements and diminished appetite. There was no pain associated with food intake. There was some anorexia noted. There was no blood in her stool by report. The patient was apparently tested for C. diff in the outpatient setting and this was negative. She came to the emergency room because there was concern about the magnitude of diarrhea. She was admitted largely on clinical history but also for an elevated CRP and the CT findings described above. The patient was ordered quantification of her stool output, which decreased markedly in the first day. She was still extremely tired. Her blood pressure was a bit on the low side initially in the hospitalization but improved with hydration. Her pain diminished as did her stool output over time. The patient was treated with ciprofloxacin and Flagyl, so there was some thought that this was an infectious colitis and this was increasing with the use of antibiotics, which are continued for 5 days post discharge. The patient has a followup appointment in the outpatient setting and she is told to maintain that and come back to the hospital if there are any worsening symptoms that are uncontrollable or worrisome in any way. TIME SPENT: Total time taken to discharge her on the day of discharge was 45 minutes, greater than half of the time was spent going over the discharge instructions [id number] with the patient. [id number]/[facility] #: [id number] LISA
== END 2018-02-23 15:20 | disposition home health service (06) | DRG 391 ==
LOC: ED 15:23 → MED 21:28 → OBSVTOIN 02-22 15:04
PROVIDERS: ADMIT Hospitalist; ATTEND Internal Medicine
DX: K52.9 Noninfective gastroenteritis and colitis, unspecified (principal); K85.90 Acute pancreatitis without necrosis or infection, unspecified; Z96.641 Presence of right artificial hip joint; M19.90 Unspecified osteoarthritis, unspecified site; E86.0 Dehydration; G62.9 Polyneuropathy, unspecified; I72.8 Aneurysm of other specified arteries; E78.5 Hyperlipidemia, unspecified; Z80.0 Family history of malignant neoplasm of digestive organs; Z81.2 Family history of tobacco abuse and dependence; Z81.1 Family history of alcohol abuse and dependence
CPT/HCPCS: 36415; 74177; 80048; 80053; 81003; 81015; 83605; 83630; 83690; 83735; 84100; 84484; 85025; 85610; 85730; 86140; 87045; 87046; 87077; 87086; 87186; 87328; 87329; 87425; 87449; 87641; 87899; 99284; A9270-GY; G0378; J0744; J1644; J2270; J2405; J3490; Q9967

== ENCOUNTER 2019-01-28 13:59 | Emergency (ER) | payer MEDICARE ==
[2019-01-28 14:57] VITALS: BP 129/54
--- NOTE | 2019-01-28 16:32 | UC ---
Ear Complaint HPI - HPI Summary HPI Summary: RIGHT EAR HAS FELT CLOGGED FOR A FEW DAYS. HEARING SOUNDS "HOLLOW". LEFT EAR IS BEGINNING TO HAVE THE SAME SYMPTOMS. REPORTS SHE DOES TEND TO BUILD UP EAR WAX. DOES NOT USE Q-TIPS OR ANY FOREIGN OBJECTS IN HER EARS. NO FEVER OR RECENT URI SYMPTOMS. - History of Current Complaint Chief Complaint: UCEar Stated Complaint: PLUGGED EAR HEAD CONGESTION Time Seen by Provider: 01/28/19 15:46 Hx Obtained From: Patient Onset/Duration: Gradual Onset, Lasting Days, Still Present Severity Initially: Moderate Severity Currently: Moderate Pain Intensity: 0 Pain Scale Used: 0-10 Numeric Aggravating Factors: Nothing Alleviating Factors: Nothing Associated Signs/Symptoms: Positive: Hearing Loss. Negative: Discharge, URI Symptoms - Allergies/Home Medications Allergies/Adverse Reactions: Allergies Allergy/AdvReac Type Severity Reaction Status Date / Time No Known Allergies Allergy Verified 01/28/19 14:57 PMH/Surg Hx/FS Hx/Imm Hx Previously Healthy: Yes - Surgical History Surgical History: Yes Surgery Procedure, Year, and Place: Right hip replacement, right arm repair - Family History Known Family History: Positive: Non-Contributory Negative: Cardiac Disease - Social History Alcohol Use: None Substance Use Type: None Smoking Status (MU): Never Smoked Tobacco - Immunization History Most Recent Influenza Vaccination: Never Most Recent Pneumonia Vaccination: Never Review of Systems All Other Systems Reviewed And Are Negative: Yes Constitutional: Positive: Negative ENT: Positive: Ear Ache Respiratory: Positive: Negative Cardiovascular: Positive: Negative Gastrointestinal: Positive: Negative Physical Exam Triage Information Reviewed: Yes Appearance: Well-Appearing, No Pain Distress, Well-Nourished Vital Signs: Initial Vital Signs Temp 98 F 01/28/19 14:53 Pulse 81 01/28/19 14:53 Resp 16 01/28/19 14:53 BP 129/54 01/28/19 14:53 Pulse Ox 98 01/28/19 14:53 Vital Signs Reviewed: Yes Eyes: Positive: Conjunctiva Clear ENT: Positive: Hearing grossly normal, Pharynx normal, TMs normal, Other - RIGHT EAC FRIABLE AND BLOODY AFTER IRRIGATION BY RN. CHUNK OF EAR WAX REMOVED. Neck: Positive: Supple, Nontender, No Lymphadenopathy Respiratory: Positive: No respiratory distress, No accessory muscle use Cardiovascular: Positive: Pulses Normal Abdomen Description: Positive: Soft Musculoskeletal: Positive: No Edema Neurological: Positive: Alert Psychological: Positive: Age Appropriate Behavior Skin: Negative: Rashes Ear Complaint Course/Dx - Course Course Of Treatment: RIGHT EAC IRRIGATED BY RN BUT WAX UNABLE TO BE DISLODGED. MODERATE CHUNK OF WAX REMOVED EASILY BY MD USING CURETTE. EAC FOUND TO BE FRIABLE AND SLIGHTLY BLOODY. EARDRUM INTACT AND APPEARS NORMAL. WILL TREAT FOR EXTERNAL OTITIS WITH ANTIBIOTIC DROPS AND HAVE PATIENT FOLLOW-UP WITH PCP OR ENT. - Differential Dx/Diagnosis Provider Diagnosis: Otitis externa of right ear, Impacted cerumen, right ear Discharge - Sign-Out/Discharge Documenting (check all that apply): Patient Departure All imaging exams completed and their final reports reviewed: No Studies - Discharge Plan Condition: Stable Disposition: HOME Prescriptions: Ofloxacin 0.3% (Ear Drop)* [Floxin 0.3% OTIC.GEOVANNA (Ear Drop)] 5 drop RIGHT EAR BID #1 [id number] Patient Education Materials: Otitis Externa (ED) Referrals: [facility] [Outside] - 2 Weeks Additional Instructions: YOUR EAR DRUM IS INTACT AND LOOKS NORMAL. YOUR EAR CANAL IS INFLAMED AND BLOODY. DO NOT INSERT ANYTHING IN YOUR EAR CANALS. USE THE ANTIBIOTIC DROPS TWICE DAILY AND FOLLOW-UP WITH PCP OR ENT IF NOT IMPROVING EXPECTED. [facility] [place] [address] [facility] [phone] CALL THE NUMBER BELOW FOR ASSISTANCE IN ESTABLISHING WITH A PCP An additional resource available to assist in finding the appropriate physician for your health care needs is the [facility] ([facility]). You may contact them by calling [phone]. - Billing Disposition and Condition Condition: STABLE Disposition: Home
[2019-01-28] MEDS ORDERED: Ciprofloxacin 0.3% OPTH.SOL* 2.5 ML BTL ONE ×2 (16:36→16:37)
== END 2019-01-28 16:42 | disposition home or self-care (01) ==
LOC: UCEAST 13:59
DX: H60.91 Unspecified otitis externa, right ear (principal); H61.21 Impacted cerumen, right ear; Z96.641 Presence of right artificial hip joint
CPT/HCPCS: 69210; 99213; A9270-GY; G0463

== ENCOUNTER 2020-07-21 07:30 | Inpatient (IN) ==
[~2020-07-21 07:30] MED LIST: Buffered Lidocaine 1% SYRIN 1 ml INTRADERM ONE; Famotidine IV 10 MG/ML 2 ml VIAL (20 mg) IV ONE; Lactated Ringers 1000 ml BAG 1,000 ML IV SCH
[2020-07-21] MEDS ORDERED: ceFAZolin 2 GM PREMIX 2 GM/50 ML BAG ONE (07:56)
[2020-07-21] MEDS ORDERED: Famotidine IV 10 MG/ML 2 ml VIAL (20 mg) ONE (07:56)
[2020-07-21] MEDS ORDERED: ROPIVACAINE 5 MG/ML 30 ML BTL (0.5%) ONE (08:43)
[2020-07-21] MEDS ORDERED: Ketamine HCL 50 mg/ml 10 ml VIAL (500 MG) ONE (08:56)
[2020-07-21] MEDS ORDERED: Propofol 10 MG/ML 20 ML BTL ONE (08:56)
[2020-07-21] MEDS ORDERED: Midazolam 5 mg/5 ml VIAL 1 mg/ml 5 ml VIAL (5 mg) ONE (08:56)
[2020-07-21] MEDS ORDERED: Ondansetron 4 mg VIAL 2 MG/ML 2 ml VIAL ONE (08:56)
[2020-07-21] MEDS ORDERED: fentaNYL 100 mcg/2 ml 50 MCG/ML VIAL ONE (08:56)
[2020-07-21] MEDS ORDERED: Lidocaine 2% PF 5 ML VIAL ONE ×2 (08:56→10:07)
[2020-07-21] MEDS ORDERED: Dexamethasone IV 4 MG/ML VIAL 1 ml VIAL ONE (08:56)
[2020-07-21] MEDS ORDERED: Bupivacaine 0.5% SDV PF 30ML VIAL ONE (09:35)
[2020-07-21] MEDS ORDERED: Acetaminophen IV 1 GM/100ML 100 ML ONE (10:38)
[2020-07-21] MEDS ORDERED: Phenylephrine 40 mcg/mL 10mL (400mcg) SYRINGE ONE (10:40)
[2020-07-21] MEDS ORDERED: Ondansetron 4 mg VIAL 2 MG/ML 2 ml VIAL IV PRN ×2 (11:32→12:06)
[2020-07-21] MEDS ORDERED: fentaNYL 100 mcg/2 ml 50 MCG/ML VIAL IV PRN (11:32)
[2020-07-21] MEDS ORDERED: Naloxone 0.4 mg VIAL 0.4 mg/ml 1 ml VIAL IV PRN (11:32)
[2020-07-21] MEDS ORDERED: diPHENhydraMINE IV 50 MG/ML 1 ml VIAL (BENADRYL) IV PRN (12:06)
[2020-07-21] MEDS ORDERED: Morphine 2 MG/ML SYRINGE IV PRN (12:06)
[2020-07-21] MEDS ORDERED: diPHENhydraMINE 25 mg TAB PO PRN (12:06)
[2020-07-21] MEDS ORDERED: Magnesium Hydroxide LIQ 30 ML UDC PO PRN (12:06)
[2020-07-21] MEDS ORDERED: oxyCODONE/Acetamin 5/325 mg TAB PO PRN (12:06)
[2020-07-21] MEDS: Lactated Ringers 1000 ml BAG 1,000 ML IV SCH (15:15)
[2020-07-21] MEDS: oxyCODONE/Acetamin 5/325 mg TAB PO PRN (17:23)
[2020-07-21] MEDS: ceFAZolin 1 GM ADVAN 1 GM in NS 0.9% 50 ML 50 ML IVPB SCH (18:16)
[2020-07-21] MEDS: Magnesium Hydroxide LIQ 30 ML UDC PO SCH (20:42)
[2020-07-21] MEDS: Ondansetron ODT 4 mg TAB 4 MG TAB PO PRN (23:44)
[2020-07-22] MEDS: oxyCODONE/Acetamin 5/325 mg TAB PO PRN ×4 (00:57→21:52)
[2020-07-22] MEDS: Lactated Ringers 1000 ml BAG 1,000 ML IV SCH (01:24)
[2020-07-22] MEDS: ceFAZolin 1 GM ADVAN 1 GM in NS 0.9% 50 ML 50 ML IVPB SCH ×2 (01:25→09:40)
[2020-07-22] MEDS: Ondansetron ODT 4 mg TAB 4 MG TAB PO PRN ×2 (07:48→14:28)
[2020-07-22] MEDS: Magnesium Hydroxide LIQ 30 ML UDC PO SCH ×2 (07:50→21:52)
[2020-07-22] MEDS: Vitamin THERAPEUTIC TAB PO SCH (07:50)
[2020-07-22 08:32] LABS: Hematocrit 33 % (35-47); Hemoglobin 11.7 g/dL (12.0-16.0); Mean Platelet Volume 8.2 fL (7.4-10.4); Platelet Count 265 10^3/uL (150-450)
[2020-07-22 08:47] LABS: BUN/Creatinine Ratio 22.2 (8-20); Calcium 8.6 mg/dL (8.6-10.3); EGFR African American 110.6 (>60); EGFR Non-African American 91.4 (>60)
[2020-07-22] MEDS: Lactulose 30 ml UDC PO PRN (21:52)
[2020-07-23 05:34] LABS: Hematocrit 31 % (35-47); Hemoglobin 10.8 g/dL (12.0-16.0); Mean Platelet Volume 7.6 fL (7.4-10.4); Platelet Count 236 10^3/uL (150-450)
[2020-07-23] MEDS: oxyCODONE/Acetamin 5/325 mg TAB PO PRN ×3 (07:46→21:51)
[2020-07-23] MEDS: Magnesium Hydroxide LIQ 30 ML UDC PO SCH ×2 (08:52→22:23)
[2020-07-23] MEDS: Vitamin THERAPEUTIC TAB PO SCH (08:52)
[2020-07-24] MEDS: oxyCODONE/Acetamin 5/325 mg TAB PO PRN ×4 (03:17→19:34)
[2020-07-24 04:56] LABS: Hematocrit 29 % (35-47); Hemoglobin 9.4 g/dL (12.0-16.0); Mean Platelet Volume 7.6 fL (7.4-10.4); Platelet Count 222 10^3/uL (150-450)
[2020-07-24] MEDS: Vitamin THERAPEUTIC TAB PO SCH (09:52)
[2020-07-24] MEDS: Lactulose 30 ml UDC PO PRN (21:05)
[2020-07-25 05:41] LABS: Hematocrit 29 % (35-47); Hemoglobin 10.2 g/dL (12.0-16.0); Mean Platelet Volume 7.5 fL (7.4-10.4); Platelet Count 261 10^3/uL (150-450)
[2020-07-25] MEDS: oxyCODONE/Acetamin 5/325 mg TAB PO PRN (05:42)
[2020-07-25 07:50] VITALS: BP 111/46
[2020-07-25] MEDS: Vitamin THERAPEUTIC TAB PO SCH (09:38)
== END 2020-07-25 12:10 | DRG 470 ==
LOC: AA 07:34 → SSU 12:07
PROVIDERS: ADMIT Orthopaedic Surgery Adult Reconstructive Orthopaedic Surgery; ATTEND Orthopaedic Surgery Adult Reconstructive Orthopaedic Surgery

== ENCOUNTER 2020-09-08 14:12 | Inpatient (IN) ==
[2020-09-08] MEDS ORDERED: HYDROcodone/ACETAMIN 5/325 mg TAB PO ONE (15:33)
[2020-09-08 18:15] LABS: BUN/Creatinine Ratio 19.6 (8-20); Calcium 9.1 mg/dL (8.6-10.3); EGFR African American 126.4 (>60); EGFR Non-African American 104.4 (>60)
[2020-09-08 18:17] LABS: Hematocrit 39 % (35-47); Hemoglobin 13.2 g/dL (12.0-16.0); Mean Corpuscular HGB Conc 34 g/dL (31-36); Mean Corpuscular Hemoglobin 32 pg (27-31); Mean Corpuscular Volume 95 fL (80-97); Mean Platelet Volume 8.6 fL (7.4-10.4); Platelet Count 214 10^3/uL (150-450); Potassium 4.1 mmol/L (3.5-5.0); Red Blood Count 4.13 10^6 /uL (3.70-4.87); Red Cell Distribution Width 13 % (10-15); White Blood Count 8.7 10^3/uL (3.5-10.8)
[2020-09-08] MEDS ORDERED: HYDROcodone/ACETAMIN 5/325 mg TAB PO PRN (21:18)
[2020-09-08] MEDS: HYDROcodone/ACETAMIN 5/325 mg TAB PO PRN (22:04)
[2020-09-08 22:30] LABS: Activated Partial Thrombo Time 19.9 seconds (26.0-38.0); INR 1.05 (0.82-1.09)
[2020-09-09] MEDS: Enoxaparin 40 MG/0.4 ML SYR SUBCUT SCH ×2 (00:23→21:52)
[2020-09-09] MEDS: HYDROcodone/ACETAMIN 5/325 mg TAB PO PRN ×6 (02:26→23:38)
[2020-09-09] MEDS: Senna TAB 8.6 mg TAB PO SCH ×2 (09:08→21:52)
[2020-09-09] MEDS: Polyethylene Glycol 3350 17 GM PACKET PO SCH (09:15)
[2020-09-10] MEDS: HYDROcodone/ACETAMIN 5/325 mg TAB PO PRN ×5 (03:32→20:59)
[2020-09-10] MEDS: Senna TAB 8.6 mg TAB PO SCH ×2 (08:40→21:00)
[2020-09-10] MEDS: Polyethylene Glycol 3350 17 GM PACKET PO SCH (08:41)
[2020-09-10] MEDS: Enoxaparin 40 MG/0.4 ML SYR SUBCUT SCH (22:59)
[2020-09-10] MEDS: Ondansetron 4 mg VIAL 2 MG/ML 2 ml VIAL IV PRN (23:49)
[2020-09-11] MEDS: HYDROcodone/ACETAMIN 5/325 mg TAB PO PRN ×4 (01:03→17:57)
[2020-09-11 05:45] LABS: ABS Eosinophils 0.1 10^3/ul (0-0.6); ABS Lymphocytes 1.1 10^3/ul (1.0-4.8); ABS Monocytes 0.6 10^3/ul (0-0.8); Eosinophil % 1.7 %; Hematocrit 38 % (35-47); Hemoglobin 12.9 g/dL (12.0-16.0); Lymphocyte % 19.4 %; Mean Corpuscular HGB Conc 34 g/dL (31-36); Mean Corpuscular Hemoglobin 32 pg (27-31); Mean Corpuscular Volume 94 fL (80-97); Mean Platelet Volume 8.4 fL (7.4-10.4); Platelet Count 219 10^3/uL (150-450); Red Blood Count 4.09 10^6 /uL (3.70-4.87); Red Cell Distribution Width 13 % (10-15); White Blood Count 5.8 10^3/uL (3.5-10.8)
[2020-09-11 06:13] LABS: BUN/Creatinine Ratio 21.8 (8-20); Calcium 8.8 mg/dL (8.6-10.3); EGFR Non-African American 106.6 (>60); Magnesium 1.9 mg/dL (1.9-2.7); Potassium 3.8 mmol/L (3.5-5.0)
[2020-09-11] MEDS: Senna TAB 8.6 mg TAB PO SCH ×2 (09:17→20:04)
[2020-09-11] MEDS: Polyethylene Glycol 3350 17 GM PACKET PO SCH (09:17)
[2020-09-11] MEDS ORDERED: Ondansetron ODT 4 mg TAB 4 MG TAB SL PRN (16:43)
[2020-09-11] MEDS: Magnesium Hydroxide LIQ 30 ML UDC PO PRN (17:53)
[2020-09-11] MEDS: Enoxaparin 40 MG/0.4 ML SYR SUBCUT SCH (21:48)
[2020-09-11] MEDS: Al Hydrox/Mg Hydrox/Simet LIQ 30 ML UDC PO PRN (22:16)
[2020-09-11] MEDS: Ondansetron 4 mg VIAL 2 MG/ML 2 ml VIAL IV PRN (23:19)
[2020-09-12] MEDS: NS 0.9% 1000 ml BAG 1,000 ML IV SCH ×2 (06:26→22:47)
[2020-09-12] MEDS: Polyethylene Glycol 3350 17 GM PACKET PO SCH (08:22)
[2020-09-12] MEDS: Senna TAB 8.6 mg TAB PO SCH ×2 (08:22→23:00)
[2020-09-12] MEDS: Ondansetron 4 mg VIAL 2 MG/ML 2 ml VIAL IV PRN (08:36)
[2020-09-12] MEDS: Morphine 2 MG/ML SYRINGE IV PRN ×3 (08:36→22:48)
[2020-09-12] MEDS ORDERED: Iodixanol (CONTRAST) 320 MG/ML 100 ML SDV IV ONE (10:05)
[2020-09-12] MEDS ORDERED: Phenol 1.4% Throat Spray 177 ml BTL MT PRN (15:17)
[2020-09-12] MEDS: Al Hydrox/Mg Hydrox/Simet LIQ 30 ML UDC PO PRN (22:59)
[2020-09-12] MEDS: Magnesium Hydroxide LIQ 30 ML UDC PO PRN (23:00)
[2020-09-12] MEDS: Enoxaparin 40 MG/0.4 ML SYR SUBCUT SCH (23:01)
[2020-09-13 06:06] LABS: ABS Eosinophils 0.1 10^3/ul (0-0.6); ABS Lymphocytes 1.4 10^3/ul (1.0-4.8); ABS Monocytes 0.6 10^3/ul (0-0.8); ABS Neutrophils 3.7 10^3/ul (1.5-7.7); Eosinophil % 2.5 %; Hematocrit 38 % (35-47); Hemoglobin 12.6 g/dL (12.0-16.0); Lymphocyte % 23.5 %; Mean Corpuscular HGB Conc 33 g/dL (31-36); Mean Corpuscular Hemoglobin 32 pg (27-31); Mean Corpuscular Volume 94 fL (80-97); Mean Platelet Volume 8.1 fL (7.4-10.4); Platelet Count 221 10^3/uL (150-450); Red Blood Count 4.02 10^6 /uL (3.70-4.87); Red Cell Distribution Width 13 % (10-15); White Blood Count 5.8 10^3/uL (3.5-10.8)
[2020-09-13 06:15] LABS: BUN/Creatinine Ratio 30.8 (8-20); Calcium 8.4 mg/dL (8.6-10.3); EGFR African American 137.6 (>60); EGFR Non-African American 113.8 (>60); Potassium 3.4 mmol/L (3.5-5.0)
[2020-09-13] MEDS: Polyethylene Glycol 3350 17 GM PACKET PO SCH ×2 (08:20→08:29)
[2020-09-13] MEDS: Senna TAB 8.6 mg TAB PO SCH ×3 (08:21→20:52)
[2020-09-13] MEDS: Morphine 2 MG/ML SYRINGE IV PRN ×3 (10:56→23:30)
[2020-09-13] MEDS ORDERED: fentaNYL 100 mcg/2 ml 50 MCG/ML VIAL ONE (15:58)
[2020-09-13] MEDS ORDERED: Midazolam 10 mg/10 ml VIAL 1 mg/ml 10 ml VIAL (10 mg) ONE (15:58)
[2020-09-13] MEDS ORDERED: TAZOBACTAM IVPB ONE (16:13)
[2020-09-13] MEDS ORDERED: PIPERACILLIN IVPB ONE (16:13)
[2020-09-13] MEDS: NS 0.9% 1000 ml BAG 1,000 ML IV SCH (17:53)
[2020-09-13] MEDS: Enoxaparin 40 MG/0.4 ML SYR SUBCUT SCH (20:51)
[2020-09-14] MEDS: Morphine 2 MG/ML SYRINGE IV PRN ×2 (03:52→10:50)
[2020-09-14 06:00] LABS: ABS Eosinophils 0.1 10^3/ul (0-0.6); ABS Lymphocytes 0.9 10^3/ul (1.0-4.8); ABS Monocytes 0.6 10^3/ul (0-0.8); ABS Neutrophils 4.4 10^3/ul (1.5-7.7); Eosinophil % 2.2 %; Hematocrit 35 % (35-47); Hemoglobin 11.9 g/dL (12.0-16.0); Lymphocyte % 14.5 %; Mean Corpuscular HGB Conc 34 g/dL (31-36); Mean Corpuscular Hemoglobin 32 pg (27-31); Mean Corpuscular Volume 94 fL (80-97); Platelet Count 216 10^3/uL (150-450); Red Blood Count 3.75 10^6 /uL (3.70-4.87); Red Cell Distribution Width 13 % (10-15)
[2020-09-14 06:10] LABS: BUN/Creatinine Ratio 28.3 (8-20); Calcium 8.4 mg/dL (8.6-10.3); EGFR African American 158.6 (>60); Magnesium 1.9 mg/dL (1.9-2.7); Potassium 3.5 mmol/L (3.5-5.0)
[2020-09-14] MEDS: Polyethylene Glycol 3350 17 GM PACKET NG TUBE SCH (09:53)
[2020-09-14] MEDS: Senna TAB 8.6 mg TAB NG TUBE SCH ×2 (09:53→20:57)
[2020-09-14] MEDS: Polyethylene Glycol 3350 17 GM PACKET PO SCH (10:43)
[2020-09-14] MEDS: NS 0.9% 1000 ml BAG 1,000 ML IV SCH (11:04)
[2020-09-14] MEDS: Senna TAB 8.6 mg TAB PO SCH (11:27)
[2020-09-14] MEDS: Enoxaparin 40 MG/0.4 ML SYR SUBCUT SCH (20:57)
[2020-09-15] MEDS: NS 0.9% 1000 ml BAG 1,000 ML IV SCH ×2 (00:58→14:23)
[2020-09-15] MEDS: Morphine 2 MG/ML SYRINGE IV PRN ×2 (03:07→10:01)
[2020-09-15 06:41] LABS: Albumin 3.6 g/dL (3.2-5.2); Albumin/Globulin Ratio 1.4 (1-3); BUN/Creatinine Ratio 25.5 (8-20); Calcium 8.6 mg/dL (8.6-10.3); EGFR African American 154.7 (>60); EGFR Non-African American 127.8 (>60); Globulin 2.5 g/dL (2-4); Potassium 3.6 mmol/L (3.5-5.0); Total Bilirubin 0.5 mg/dL (0.2-1.0); Total Protein 6.1 g/dL (6.4-8.9)
[2020-09-15] MEDS: Senna TAB 8.6 mg TAB NG TUBE SCH ×2 (09:52→20:09)
[2020-09-15] MEDS: Polyethylene Glycol 3350 17 GM PACKET NG TUBE SCH (09:52)
[2020-09-15] MEDS: HYDROcodone/ACETAMIN 5/325 mg TAB PO PRN ×2 (09:52→20:15)
[2020-09-15] MEDS: Enoxaparin 40 MG/0.4 ML SYR SUBCUT SCH (21:28)
[2020-09-16] MEDS: NS 0.9% 1000 ml BAG 1,000 ML IV SCH (05:52)
[2020-09-16] MEDS: Al Hydrox/Mg Hydrox/Simet LIQ 30 ML UDC PO PRN (06:45)
[2020-09-16] MEDS: Senna TAB 8.6 mg TAB NG TUBE SCH ×2 (07:31→20:05)
[2020-09-16] MEDS: Polyethylene Glycol 3350 17 GM PACKET NG TUBE SCH (07:31)
[2020-09-16 09:17] LABS: ABS Eosinophils 0.2 10^3/ul (0-0.6); ABS Lymphocytes 0.9 10^3/ul (1.0-4.8); ABS Monocytes 0.5 10^3/ul (0-0.8); ABS Neutrophils 3.1 10^3/ul (1.5-7.7); Eosinophil % 4.4 %; Hematocrit 36 % (35-47); Hemoglobin 12.7 g/dL (12.0-16.0); Mean Corpuscular HGB Conc 35 g/dL (31-36); Mean Corpuscular Hemoglobin 32 pg (27-31); Mean Corpuscular Volume 92 fL (80-97); Mean Platelet Volume 7.5 fL (7.4-10.4); Platelet Count 265 10^3/uL (150-450); Red Blood Count 3.91 10^6 /uL (3.70-4.87); Red Cell Distribution Width 13 % (10-15); White Blood Count 4.8 10^3/uL (3.5-10.8)
[2020-09-16 09:37] LABS: BUN/Creatinine Ratio 23.8 (8-20); Calcium 8.7 mg/dL (8.6-10.3); EGFR African American 176.1 (>60); EGFR Non-African American 145.5 (>60); Potassium 3.4 mmol/L (3.5-5.0)
[2020-09-16] MEDS: HYDROcodone/ACETAMIN 5/325 mg TAB PO PRN ×2 (13:05→20:06)
[2020-09-16] MEDS ORDERED: KCL 20 MEQ/100 ML IVPREMIX 20 MEQ/100 ML BAG IV SCH (14:00)
[2020-09-16] MEDS ORDERED: Potassium Chlor 10 meq TAB PO ONE ×2 (14:50)
[2020-09-16] MEDS: Potassium Chlor 10 meq TAB PO SCH ×2 (15:44→18:20)
[2020-09-16] MEDS: Enoxaparin 40 MG/0.4 ML SYR SUBCUT SCH (21:13)
[2020-09-17] MEDS: HYDROcodone/ACETAMIN 5/325 mg TAB PO PRN (05:37)
[2020-09-17 06:10] LABS: ABS Basophils 0.1 10^3/ul (0-0.2); ABS Eosinophils 0.2 10^3/ul (0-0.6); ABS Lymphocytes 1.6 10^3/ul (1.0-4.8); ABS Monocytes 0.6 10^3/ul (0-0.8); ABS Neutrophils 3.2 10^3/ul (1.5-7.7); Eosinophil % 4.4 %; Hematocrit 41 % (35-47); Hemoglobin 13.5 g/dL (12.0-16.0); Lymphocyte % 28.8 %; Mean Corpuscular HGB Conc 34 g/dL (31-36); Mean Corpuscular Hemoglobin 31 pg (27-31); Mean Corpuscular Volume 94 fL (80-97); Mean Platelet Volume 7.8 fL (7.4-10.4); Nucleated Red Blood Cells % 0.1; Platelet Count 309 10^3/uL (150-450); Red Blood Count 4.32 10^6 /uL (3.70-4.87); Red Cell Distribution Width 13 % (10-15); White Blood Count 5.7 10^3/uL (3.5-10.8)
[2020-09-17 06:21] LABS: BUN/Creatinine Ratio 14.8 (8-20); Calcium 9.3 mg/dL (8.6-10.3); EGFR African American 131.8 (>60); EGFR Non-African American 108.9 (>60); Potassium 3.9 mmol/L (3.5-5.0)
[2020-09-17] MEDS: Lidocaine PATCH 5% PATCH TRANSDERM SCH (10:00)
[2020-09-17] MEDS: Senna TAB 8.6 mg TAB NG TUBE SCH ×2 (11:11→21:06)
[2020-09-17] MEDS: Polyethylene Glycol 3350 17 GM PACKET NG TUBE SCH (11:21)
[2020-09-17] MEDS: Lidocaine Patch REMOVE PATCH PATCH OFF SCH (21:06)
[2020-09-17] MEDS: Enoxaparin 40 MG/0.4 ML SYR SUBCUT SCH (21:10)
[2020-09-18] MEDS: Morphine 2 MG/ML SYRINGE IV PRN (02:45)
[2020-09-18] MEDS: Polyethylene Glycol 3350 17 GM PACKET NG TUBE SCH (07:51)
[2020-09-18] MEDS: Lidocaine PATCH 5% PATCH TRANSDERM SCH (07:51)
[2020-09-18] MEDS: Senna TAB 8.6 mg TAB NG TUBE SCH ×2 (08:00→20:13)
[2020-09-18] MEDS: Enoxaparin 40 MG/0.4 ML SYR SUBCUT SCH (20:07)
[2020-09-18] MEDS: Lidocaine Patch REMOVE PATCH PATCH OFF SCH (20:15)
[2020-09-19] MEDS: Polyethylene Glycol 3350 17 GM PACKET NG TUBE SCH (07:56)
[2020-09-19] MEDS: Senna TAB 8.6 mg TAB NG TUBE SCH ×2 (07:56→22:06)
[2020-09-19] MEDS: Lidocaine PATCH 5% PATCH TRANSDERM SCH (07:57)
[2020-09-19] MEDS: Enoxaparin 40 MG/0.4 ML SYR SUBCUT SCH (22:06)
[2020-09-19] MEDS: Lidocaine Patch REMOVE PATCH PATCH OFF SCH (23:10)
[2020-09-20] MEDS: Senna TAB 8.6 mg TAB NG TUBE SCH (07:48)
[2020-09-20] MEDS: Lidocaine PATCH 5% PATCH TRANSDERM SCH (07:49)
[2020-09-20] MEDS: Polyethylene Glycol 3350 17 GM PACKET NG TUBE SCH (07:49)
[2020-09-20 08:34] VITALS: BP 133/69
== END 2020-09-20 11:15 | DRG 552 ==
LOC: SSU 14:12 → ED 14:12 → SSU 23:11 → MED 09-12 08:21
PROVIDERS: ADMIT Student in an Organized Health Care Education/Training Program; ATTEND Student in an Organized Health Care Education/Training Program